=== PATIENT | female | born 1990 | race Two or more races ===

== ENCOUNTER 2017-10-09 01:47 | Emergency (ER) | payer OTHER ==
[~2017-10-09] VITALS: Ht 160 cm; Wt 63.5 kg
[2017-10-09 02:05] VITALS: BP 123/70
[2017-10-09] MEDS ORDERED: HYDROCODONE/APAP 5/325MG 1 EACH TABLET ONE (02:27)
[2017-10-09] MEDS ORDERED: TDAP [DIPH/PERTUSSIS/TET] 0.5 ML VIAL IM ONE ×2 (02:28→02:30)
[2017-10-09] MEDS ORDERED: HYDROCODONE/APAP 5/325MG 1 EACH TABLET PO ONE ×2 (02:30)
== END 2017-10-09 03:56 | disposition home or self-care (01) ==
LOC: ER 01:48
DX: S61.511A Laceration without foreign body of right wrist, initial encounter (principal); F10.10 Alcohol abuse, uncomplicated; Y90.9 Presence of alcohol in blood, level not specified; X58.XXXA Exposure to other specified factors, initial encounter; Y93.89 Activity, other specified; Y92.89 Other specified places as the place of occurrence of the external cause; Y99.8 Other external cause status
CPT/HCPCS: 73110; 90715; A4606; A6403; Z7610